=== PATIENT | female | born 1935 | race Caucasian/White ===

== ENCOUNTER 2022-02-03 18:33 | Emergency (ER) | payer OTHER ==
[~2022-02-03] VITALS: Ht 152.4 cm; Wt 82.1 kg
--- NOTE | 2022-02-03 18:48 | NUR ---
[id number], c/o neck, and right forearm jim 5/10 ps, no loc, -AB, +SB. On room air, breathing evenly and unlabored. Connected to the monitor and pulse ox. Kept comfortable, will continue to monitor accordingly.
--- NOTE | 2022-02-03 20:05 | NUR ---
BLOOD COLLECTED SENT TO LAB
[2022-02-03 20:06] LABS: BASOPHILS % (AUTO) 0.6 % (0.0-2.0); EOSINOPHILS % (AUTO) 2.9 % (0.0-6.0); HEMATOCRIT 26 % (33-45); HEMOGLOBIN 8.7 g/dL (11.5-14.8); LYMPHOCYTES # (AUTO) 1.2 K/uL (0.8-4.8); LYMPHOCYTES % (AUTO) 13.9 % (20.0-44.0); MEAN CORPUSCULAR HGB CONC 33 g/dl (31.0-36.0); MEAN CORPUSCULAR VOLUME 80 fL (82-100); MONOCYTES # (AUTO) 0.6 K/uL (0.1-1.30); MONOCYTES % (AUTO) 6.9 % (2.0-12.0); NEUTROPHILS # (AUTO) 6.8 K/uL (1.8-8.9); NEUTROPHILS % (AUTO) 75.7 % (43.0-81.0); PLATELET COUNT (AUTO) 421 K/uL (150-450)
--- NOTE | 2022-02-03 20:10 | NUR ---
CALLED RAD TO TAKE PT TO [facility]
[2022-02-03 20:12] LABS: CALCIUM, SERUM 9.7 mg/dL (8.5-10.1); CARBON DIOXIDE 24 mmol/L (21-32); CHLORIDE 104 mmol/L (98-107); CREATININE 1.7 mg/dL (0.6-1.3); GLUCOSE 108 mg/dL (74-106); POTASSIUM 3.2 mmol/L (3.5-5.1); SODIUM SERUM 138 mmol/L (136-145); UREA NITROGEN, BLOOD 29 mg/dL (7-18)
[2022-02-03] MEDS ORDERED: IOHEXOL-350 100 ML VIAL IV ONE (20:26)
[2022-02-03] MEDS ORDERED: CT SWABBABLE VALVE TRANS SET 1 EA INFUS.SET MC ONE (20:27)
[2022-02-03] MEDS ORDERED: IV NS 0.9% 250 ML IV ONE (20:27)
--- NOTE | 2022-02-03 20:27 | NUR ---
PT TAKEN TO CT
--- NOTE | 2022-02-03 21:57 | NUR ---
wound care provided by gun examiner.
--- NOTE | 2022-02-03 21:57 | NUR ---
Patient discharged to home in stable condition. Written and verbal after care instructions given. Patient verbalizes understanding of instruction.IV removed. Catheter intact and site benign. Pressure and 4x4 applied to site. No bleeding noted. Pt ambulatory with a steady gait
[2022-02-03 22:49] VITALS: BP 131/87
== END 2022-02-03 22:00 | disposition home or self-care (01) ==
LOC: ER 18:35
DX: S51.811A Laceration without foreign body of right forearm, initial encounter (principal); S10.93XA Contusion of unspecified part of neck, initial encounter; I48.91 Unspecified atrial fibrillation; M19.90 Unspecified osteoarthritis, unspecified site; Z88.8 Allergy status to other drugs, medicaments and biological substances; V49.9XXA Car occupant (driver) (passenger) injured in unspecified traffic accident, initial encounter; Y93.89 Activity, other specified; Y92.89 Other specified places as the place of occurrence of the external cause; Y99.8 Other external cause status
CPT/HCPCS: 36415; 70450; 70498; 71045; 80048; 85025; 99285; J7050; Q9967